=== PATIENT | female | born 1980 | race Caucasian/White ===

== ENCOUNTER 2017-09-23 13:57 | Emergency (ER) | payer MEDICAID ==
[2017-09-23] MEDS ORDERED: HYDROmorphone 0.5 MG/0.5 ML Syringe IVPUSH ONE (14:26)
[2017-09-23] MEDS ORDERED: Sodium Chloride 0.9% 10 ML Syringe FLUSH PRN (14:26)
[2017-09-23] MEDS ORDERED: Ondansetron 4 MG/2 ML SDV IVPUSH ONE (14:26)
--- NOTE | 2017-09-23 14:31 | EDM.PDOC ---
ED HPI GENERAL MEDICAL PROBLEM - General Chief Complaint: Headache Stated Complaint: HEADACHE/FACE PAIN & NUMBNESS Time Seen by Provider: 09/23/17 14:28 Source of Information: Reports: Patient History Limitations: Reports: No Limitations - History of Present Illness INITIAL COMMENTS - FREE TEXT/NARRATIVE: Pt arrived with pain in the entire head with the sensation of alot of pressure. She occassionally gets headaches but never this sever. She now has numbness in the rt facial area. She is mildly nauseated. She has never been told that she has migraine headaches. Onset: Other ( started last nite. ) Duration: Hour(s):, Getting Worse Location: Reports: Head, Face Associated Symptoms: Reports: Headaches, Other (pt has severe pressure in the head. ) Headache Pain Score (Numeric/FACES): 7 - Related Data Allergies Allergy/AdvReac Type Severity Reaction Status Date / Time cefaclor [From Ceclor] Allergy Cannot Verified 09/23/17 14:10 Remember Penicillins Allergy Cannot Verified 09/23/17 14:10 Remember Sulfa (Sulfonamide Allergy Cannot Verified 09/23/17 14:10 Antibiotics) Remember Home Meds: Home Meds NK [No Known Home Meds] 09/23/17 [History] Past Medical History WE[employer]ER History: Reports: Endocrine/Metabolic History: Reports: Other (See Below) Other Endocrine/Metabolic History: lyme disease in past - Past Surgical History GI Surgical History: Reports: Appendectomy Social & Family History - Tobacco Use Smoking Status *Q: Current Every Day Smoker Years of Tobacco use: 20 Packs/Tins Daily: 1 Used Tobacco, but Quit: No Second Hand Smoke Exposure: Yes - Alcohol Use Days Per Week of Alcohol Use: 0 - Recreational Drug Use Recreational Drug Use: No ED ROS GENERAL - Review of Systems Review Of Systems: See Below Constitutional: Reports: No Symptoms HEENT: Reports: No Symptoms Respiratory: Reports: No Symptoms Cardiovascular: Reports: No Symptoms Endocrine: Reports: No Symptoms GI/Abdominal: Reports: No Symptoms : Reports: No Symptoms Neurological: Reports: Other ( sevre headache. ) - Physical Exam Exam: See Below Text/Narrative:: pt arrived with a very severe headache over the entire head. She had numbness on the rt side of her face. She has never had a headache this severe. Exam Limited By: No Limitations General Appearance: Alert, Anxious, Severe Distress, Other (pupils are equal and reactive. ) Ears: Normal TMs Nose: Normal Inspection Throat/Mouth: Normal Inspection Head Exam: Atraumatic Neck: Normal Inspection Respiratory/Chest: No Respiratory Distress Cardiovascular: Regular Rate, Rhythm GI/Abdominal: Soft, Non-Tender, Other (pt has mild nausea. ) (Female) Exam: Deferred Rectal (Female) Exam: Deferred Neuro Exam (Abbreviated): Alert, Oriented, Normal Cognition Back Exam: Normal Inspection Extremities: Normal Inspection Psychiatric: Normal Affect Skin Exam: Dry Course - Vital Signs Last Recorded V/S: Last Vital Signs Temp 36.5 C 09/23/17 15:23 Pulse 65 09/23/17 17:21 Resp 16 09/23/17 17:21 BP 148/79 H 09/23/17 17:21 Pulse Ox 98 09/23/17 17:21 - Orders/Labs/Meds Orders: Active Orders 24 hr Category Date Time Status Head wo Cont [CT] Stat Exams 09/23/17 14:27 Taken Clindamycin Phosphate [Cleocin] 600 mg Med 09/23/17 17:15 Active Sodium Chloride 0.9% [Normal Saline] 50 ml IV ONETIME Sodium Chloride 0.9% [Normal Saline] 1,000 ml Med 09/23/17 16:00 Active IV ASDIRECTED Sodium Chloride 0.9% [Saline Flush] Med 09/23/17 14:26 Active 10 ml FLUSH ASDIRECTED PRN Saline Lock Insert [OM.PC] Routine Oth 09/23/17 14:26 Ordered Medication Orders Sodium Chloride (Normal Saline) 1,000 mls @ 999 mls/hr IV ASDIRECTED PATRICIA Last Admin: 09/23/17 17:09 Dose: 999 mls/hr Clindamycin Phosphate 600 mg/ (Sodium Chloride) 54 mls @ 100 mls/hr IV ONETIME ONE Stop: 09/23/17 17:47 Last Admin: 09/23/17 17:18 Dose: 100 mls/hr Sodium Chloride (Saline Flush) 10 ml FLUSH ASDIRECTED PRN PRN Reason: Keep Vein Open Last Admin: 09/23/17 15:05 Dose: 10 ml Labs: Laboratory Tests 09/23/17 09/23/17 09/23/17 Range/Units 14:27 14:27 14:56 WBC 14.2 H (4.5-11.0) K/uL RBC 5.08 (3.30-5.50) M/uL Hgb 14.0 (12.0-15.0) g/dL Hct 41.3 (36.0-48.0) % MCV 81 (80-98) fL MCH 28 (27-31) pg MCHC 34 (32-36) % Plt Count 289 (150-400) K/uL Neut % (Auto) 76 H (36-66) % Lymph % (Auto) 14 L (24-44) % Sunflower % (Auto) 7 H (2-6) % Eos % (Auto) 3 (2-4) % Baso % (Auto) 0 (0-1) % Sodium 142 (140-148) mmol/L Potassium 4.1 (3.6-5.2) mmol/L Chloride 109 H (100-108) mmol/L Carbon Dioxide 25 (21-32) mmol/L Anion Gap 12.1 (5.0-14.0) mmol/L BUN 12 (7-18) mg/dL Creatinine 0.9 (0.6-1.0) mg/dL Est Cr Clr Drug Dosing 72.47 mL/min Estimated GFR (MDRD) > 60 (>60) Glucose 95 (74-106) mg/dL Calcium 8.7 (8.5-10.1) mg/dL Total Bilirubin 0.4 (0.2-1.0) mg/dL AST 16 (15-37) U/L ALT 29 (12-78) U/L Alkaline Phosphatase 83 (46-116) U/L C-Reactive Protein 1.29 H (0.0-0.3) mg/dL Total Protein 6.4 (6.4-8.2) g/dL Albumin 3.4 (3.4-5.0) g/dL Globulin 3.0 (2.3-3.5) g/dL Albumin/Globulin Ratio 1.1 L (1.2-2.2) Urine Color Urine Appearance Urine pH (4.5-8.0) Ur Specific [place] (1.008-1.030) Urine Protein (NEGATIVE) mg/dL Urine Glucose (UA) (NEGATIVE) mg/dL Urine Ketones (NEGATIVE) mg/dL Urine Occult Blood (NEGATIVE) Urine Nitrite (NEGATIVE) Urine Bilirubin (NEGATIVE) Urine Urobilinogen (NORMAL) mg/dL Ur Leukocyte Esterase (NEGATIVE) Urine RBC (0-5) Urine WBC (0-5) Ur Epithelial Cells Amorphous Sediment Urine Bacteria Urine Mucus 09/23/17 Range/Units 15:19 WBC (4.5-11.0) K/uL RBC (3.30-5.50) M/uL Hgb (12.0-15.0) g/dL Hct (36.0-48.0) % MCV (80-98) fL MCH (27-31) pg MCHC (32-36) % Plt Count (150-400) K/uL Neut % (Auto) (36-66) % Lymph % (Auto) (24-44) % Sunflower % (Auto) (2-6) % Eos % (Auto) (2-4) % Baso % (Auto) (0-1) % Sodium (140-148) mmol/L Potassium (3.6-5.2) mmol/L Chloride (100-108) mmol/L Carbon Dioxide (21-32) mmol/L Anion Gap (5.0-14.0) mmol/L BUN (7-18) mg/dL Creatinine (0.6-1.0) mg/dL Est Cr Clr Drug Dosing mL/min Estimated GFR (MDRD) (>60) Glucose (74-106) mg/dL Calcium (8.5-10.1) mg/dL Total Bilirubin (0.2-1.0) mg/dL AST (15-37) U/L ALT (12-78) U/L Alkaline Phosphatase (46-116) U/L C-Reactive Protein (0.0-0.3) mg/dL Total Protein (6.4-8.2) g/dL Albumin (3.4-5.0) g/dL Globulin (2.3-3.5) g/dL Albumin/Globulin Ratio (1.2-2.2) Urine Color Yellow Urine Appearance Slightly cloudy Urine pH 5.0 (4.5-8.0) Ur Specific [place] 1.010 (1.008-1.030) Urine Protein Negative (NEGATIVE) mg/dL Urine Glucose (UA) Normal (NEGATIVE) mg/dL Urine Ketones Negative (NEGATIVE) mg/dL Urine Occult Blood Trace (NEGATIVE) Urine Nitrite Negative (NEGATIVE) Urine Bilirubin Negative (NEGATIVE) Urine Urobilinogen Normal (NORMAL) mg/dL Ur Leukocyte Esterase Negative (NEGATIVE) Urine RBC 0-5 (0-5) Urine WBC 0-5 (0-5) Ur Epithelial Cells Moderate Amorphous Sediment Not seen Urine Bacteria Rare Urine Mucus Rare Meds: Medications Generic Name Dose Route Start Last Admin Trade Name Freq PRN Reason Stop Dose Admin Sodium Chloride 1,000 mls @ 999 mls/hr 09/23/17 16:00 09/23/17 17:09 Normal Saline IV 999 mls/hr ASDIRECTED PATRICIA Administration Clindamycin Phosphate 600 mg/ 54 mls @ 100 mls/hr 09/23/17 17:15 09/23/17 17: 18 Sodium Chloride IV 09/23/17 17:47 100 mls/hr ONETIME ONE Administration Sodium Chloride 10 ml 09/23/17 14:26 09/23/17 15:05 Saline Flush FLUSH 10 ml ASDIRECTED PRN Administration Keep Vein Open Discontinued Medications Generic Name Dose Route Start Last Admin Trade Name Reginaldq PRN Reason Stop Dose Admin Diphenhydramine HCl 25 mg 09/23/17 15:56 09/23/17 17:11 Benadryl IVPUSH 09/23/17 15:57 25 mg ONETIME ONE Administration Hydromorphone HCl 0.5 mg 09/23/17 14:26 09/23/17 15:05 Dilaudid IVPUSH 09/23/17 14:27 0.5 mg ONETIME ONE Administration Ketorolac Tromethamine 30 mg 09/23/17 15:57 09/23/17 17:15 Toradol IVPUSH 09/23/17 15:58 30 mg ONETIME ONE Administration Ondansetron HCl 4 mg 09/23/17 14:26 09/23/17 15:07 Zofran IVPUSH 09/23/17 14:27 4 mg ONETIME ONE Administration Oxycodone/Acetaminophen 1 tab 09/23/17 17:39 Percocet 325-5 Mg PO 09/23/17 17:40 ONETIME ONE - Re-Assessments/Exams Free Text/Narrative Re-Assessment/Exam: 09/23/17 16:00 cat scan of the head was neg.She had normal looking sinuses. Her wbc was borderline. Her chems looked good. As the headache improved she localized thae she is having pain in the rt lower most post molar. 09/23/17 17:00 Departure - Departure Time of Disposition: 17:39 Disposition: Home, Self-Care 01 Condition: Fair Clinical Impression: Infected tooth, Migraine - Discharge Information Instructions: Migraine Headache, [id number], Dental Abscess, [id number] Referrals: PCP,None [Primary Care Provider] - Forms: ED Department Discharge Care Plan Goals: push fluids, dental appt early next week, clindomycin 300mg tid for 10 days, norco 5/325 q6h prn for pain Do yogurt and probiotic while on the antibiotic. - My Orders Last 24 Hours: My Active Orders 09/23/17 14:26 Sodium Chloride 0.9% [Saline Flush] 10 ml FLUSH ASDIRECTED PRN Saline Lock Insert [OM.PC] Routine 09/23/17 14:27 Head wo Cont [CT] Stat 09/23/17 16:00 Sodium Chloride 0.9% [Normal Saline] 1,000 ml IV ASDIRECTED 09/23/17 17:15 Clindamycin Phosphate [Cleocin] 600 mg Sodium Chloride 0.9% [Normal Saline] 50 ml IV ONETIME - Assessment/Plan Last 24 Hours: My Active Orders 09/23/17 14:26 Sodium Chloride 0.9% [Saline Flush] 10 ml FLUSH ASDIRECTED PRN Saline Lock Insert [OM.PC] Routine 09/23/17 14:27 Head wo Cont [CT] Stat 09/23/17 16:00 Sodium Chloride 0.9% [Normal Saline] 1,000 ml IV ASDIRECTED 09/23/17 17:15 Clindamycin Phosphate [Cleocin] 600 mg Sodium Chloride 0.9% [Normal Saline] 50 ml IV ONETIME
[2017-09-23] MEDS ORDERED: diphenhydrAMINE 50 MG/ML SDV IVPUSH ONE (15:56)
[2017-09-23] MEDS ORDERED: Ketorolac 30 MG/ML SDV IVPUSH ONE (15:57)
[2017-09-23] MEDS ORDERED: Sodium Chloride 0.9% 1,000 ML IV SCH (16:00)
[2017-09-23] MEDS ORDERED: cefTRIAXone 500 MG Vial IVPUSH ONE (16:59)
[2017-09-23 17:23] VITALS: BP 148/79
[2017-09-23] MEDS ORDERED: Acetaminophen/oxyCODONE 325-5 MG Tab PO ONE (17:39)
== END 2017-09-23 18:22 | disposition home or self-care (01) ==
LOC: JP.ED 13:57
DX: G43.909 Migraine, unspecified, not intractable, without status migrainosus (principal); K04.7 Periapical abscess without sinus; F17.210 Nicotine dependence, cigarettes, uncomplicated; Z88.0 Allergy status to penicillin; Z88.2 Allergy status to sulfonamides; Z88.1 Allergy status to other antibiotic agents
CPT/HCPCS: 36415; 70450; 80053; 81001; 85025; 86140; 96361; 96365; 96375; 99284; A9270; J1170; J1200; J1885; J2405; J7040; J7050; 99283; J7030; S0077

== ENCOUNTER 2017-09-27 19:44 | Emergency (ER) | payer SELFPAY ==
[2017-09-27] MEDS ORDERED: HYDROmorphone 1 MG/ML Syringe IVPUSH ONE (21:10)
[2017-09-27] MEDS ORDERED: Sodium Chloride 0.9% 10 ML Syringe FLUSH PRN (21:10)
[2017-09-27] MEDS ORDERED: LORazepam 2 MG/ML SDV IVPUSH ONE (21:10)
[2017-09-27] MEDS ORDERED: cefTRIAXone 500 MG Vial IVPUSH ONE (21:11)
--- NOTE | 2017-09-27 21:14 | EDM.PDOC ---
ED HPI GENERAL MEDICAL PROBLEM - General Chief Complaint: ENT Problem Stated Complaint: TOOTH PAIN Time Seen by Provider: 09/27/17 20:38 Source of Information: Reports: Patient, Old Records, RN Notes Reviewed History Limitations: Reports: No Limitations - History of Present Illness INITIAL COMMENTS - FREE TEXT/NARRATIVE: 2047 Brought by her son Chief complaint Headache, vomiting, facial pain History of present illness 37-year-old female, irregularly gets headaches, never diagnosed with him previously, seen in emergency for days ago for the worst headache she's ever had. Labs are done as well as CT head which was negative. After she had been initially evaluated then she started developing or noticing right lower dental pain. Consequently she was prescribed clindamycin for this. Since then the pain has increased swelling of her face has started she cannot open her mouth she cannot swallow because her throat is painful and in addition she's had nausea and vomiting, "all day Tuesday" which was 2 days ago. Yesterday and today she's had several episodes of diarrhea. No on else ill at home. No fever No cough or difficulty breathing. 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 Right Lower Oral/Mouth Pain Score (Numeric/FACES): 8 - Related Data Allergies Allergy/AdvReac Type Severity Reaction Status Date / Time cefaclor [From Ceclor] Allergy Cannot Verified 09/27/17 19:58 Remember Penicillins Allergy Cannot Verified 09/27/17 19:58 Remember Sulfa (Sulfonamide Allergy Cannot Verified 09/27/17 19:58 Antibiotics) Remember Home Meds: Home Meds Acetaminophen/oxyCODONE [Percocet 325-5 MG] 1 - 2 each PO Q4H PRN #15 tab [Rx] Cefuroxime Axetil [Cefuroxime] 250 mg PO BID #20 tablet 09/27/17 [Rx] Clindamycin HCl [Cleocin] 300 mg PO TID 09/27/17 [History] Past Medical History [employer] SUPER[employer] History: Reports: Endocrine/Metabolic History: Reports: Other (See Below) Other Endocrine/Metabolic History: lyme disease in past - Past Surgical History GI Surgical History: Reports: Appendectomy Social & Family History - Tobacco Use Smoking Status *Q: Unknown Ever Smoked Years of Tobacco use: 20 Packs/Tins Daily: 1 Used Tobacco, but Quit: No Second Hand Smoke Exposure: Yes - Alcohol Use Days Per Week of Alcohol Use: 0 - Recreational Drug Use Recreational Drug Use: No ED ROS ENT - Review of Systems Review Of Systems: See Below Constitutional: Reports: Malaise, Fatigue, Decreased Appetite. Denies: Fever HEENT: Reports: Dental Pain, Throat Pain, Other (Facial swelling, unable to open mouth). Denies: Ear Pain, Rhinitis Respiratory: Denies: Cough Cardiovascular: Denies: Chest Pain GI/Abdominal: Reports: Diarrhea, Decreased Appetite, Nausea, Vomiting. Denies: Abdominal Pain : Reports: No Symptoms Musculoskeletal: Reports: Other (Neck pain) Skin: Reports: No Symptoms Neurological: Reports: Headache, Trouble Speaking (Because of trismus), Other ( Sleep disturbance because of pain). Denies: Numbness, Paresthesia, Syncope, Gait Disturbance Hematologic/Lymphatic: Reports: No Symptoms Immunologic: Reports: No Symptoms ED EXAM, ENT - Physical Exam Exam: See Below Exam Limited By: No Limitations General Appearance: Alert, Moderate Distress, Other (Appears quite uncomfortable ,Temperature normal blood pressure elevated pulse normal, no difficulty breathing but difficulty talking because it is so painful to open mouth) Eye Exam: Bilateral Eye: EOMI, Normal Inspection Ears: Normal External Exam, Normal Canal, Hearing Grossly Normal, Normal TMs Nose: Normal Inspection, Normal Mucousa Mouth/Throat: Dental Pain (Right lower), Muffled Voice (Mild), Pharyngeal Erythema, Throat Swelling, Trismus, Other (Trismus, unable to fully evaluate throat, facial swelling on the right cheek). No: Normal Oropharynx Head: Atraumatic Neck: Supple, Non-Tender. No: Lymphadenopathy (R), Lymphadenopathy (L) Respiratory/Chest: No Respiratory Distress, Lungs Clear, No Accessory Muscle Use , Chest Non-Tender Cardiovascular: Normal Peripheral Pulses, Regular Rate, Rhythm Extremities: Normal Inspection, Non-Tender Neurological: Alert, No Motor/Sensory Deficits Psychiatric: Anxious, Tearful Skin: Warm, Dry, No Rash Course - Vital Signs Last Recorded V/S: Last Vital Signs Temp 37.2 C 09/28/17 00:05 Pulse 80 09/27/17 21:35 Resp 15 09/28/17 00:05 BP 142/97 H 09/28/17 00:05 Pulse Ox 99 09/28/17 00:05 - Orders/Labs/Meds Orders: Active Orders 24 hr Category Date Time Status Peripheral IV Care [RC] . DIRECTED Care 09/27/17 21:10 Active Neck Soft Tissue [CR] Stat Exams 09/27/17 21:10 Taken Soft Tissue Neck w Cont [CT] Stat Exams 09/27/17 22:03 Taken Peripheral IV Insertion Adult [OM.PC] Routine Oth 09/27/17 21:09 Ordered Labs: Laboratory Tests 09/27/17 Range/Units 21:20 WBC 9.4 (4.5-11.0) K/uL RBC 4.79 (3.30-5.50) M/uL Hgb 12.8 (12.0-15.0) g/dL Hct 38.5 (36.0-48.0) % MCV 80 (80-98) fL MCH 27 (27-31) pg MCHC 33 (32-36) % Plt Count 366 (150-400) K/uL Meds: Medications Discontinued Medications Generic Name Dose Route Start Last Admin Trade Name Freq PRN Reason Stop Dose Admin Ceftriaxone Sodium 1,000 mg 09/27/17 21:11 09/27/17 21:43 Rocephin IVPUSH 09/27/17 21:12 1,000 mg ONETIME ONE Administration Hydromorphone HCl 1 mg 09/27/17 21:10 09/27/17 21:42 Dilaudid IVPUSH 09/27/17 21:11 1 mg ONETIME ONE Administration Hydromorphone HCl 0.5 mg 09/27/17 22:44 09/27/17 22:50 Dilaudid IVPUSH 0.5 mg Q1H PRN Administration moderate to severe pain Sodium Chloride 1,000 mls @ 400 mls/hr 09/27/17 21:15 09/27/17 21:42 Normal Saline IV 400 mls/hr ASDIRECTED PATRICIA Administration Sodium Chloride Confirm 09/27/17 21:28 Normal Saline Administered 09/27/17 21:29 Dose 50 mls @ as directed .ROUTE .STK-MED ONE Sodium Chloride 100 mls @ 3 mls/sec 09/27/17 22:15 Normal Saline IV ASDIRECTED PATRICIA Iopamidol 100 ml 09/27/17 22:15 [id number] (76%) IV . DIRECTED PATRICIA Lorazepam 1 mg 09/27/17 21:10 09/27/17 21:42 Ativan IVPUSH 09/27/17 21:11 1 mg ONETIME ONE Administration Sodium Chloride 10 ml 09/27/17 21:10 Saline Flush FLUSH ASDIRECTED PRN Keep Vein Open - Re-Assessments/Exams Free Text/Narrative Re-Assessment/Exam: 09/27/17 21:08 37-year-old female with right-sided dental pain, facial swelling, trismus and headache along with nausea and vomiting but no fever. Symptoms are suggestive of dental infection and headache, possible migraine, however the possibility also exists of peritonsillar or retropharyngeal abscess in view of her significant trismus and pain. Intravenous saline, hydromorphone 1.5 mg total, lorazepam 1 mg and ceftriaxone 1000 mg with some improvement 09/27/17 22:07 She reports initially pain not significantly improved but nausea is better, she was a bit sedated according to the nurse after the medication was initially given. Unfortunately plain x-rays of the neck were done which were listed as CR instead of ordering the CT of the soft tissue of the neck which will now be ordered. 09/28/17 00:42 CT scan soft tissues neck negative After the second dose hydromorphone for a total of 1.5 mg, improvement was noted. She was able to be discharged, see discharge instructions below Departure - Departure Time of Disposition: 23:41 Disposition: Home, Self-Care 01 Condition: Good Clinical Impression: Dental abscess, Trismus Headache Qualifiers: Headache type: unspecified Headache chronicity pattern: acute headache Intractability: not intractable Qualified Code(s): R51 - Headache - Discharge Information Prescriptions: Acetaminophen/oxyCODONE [Percocet 325-5 MG] 1 - 2 each PO Q4H PRN #15 tab PRN Reason: moderate to severe pain Cefuroxime Axetil [Cefuroxime] 250 mg PO BID #20 tablet Instructions: Dental Abscess Referrals: PCP,None [Primary Care Provider] - Forms: ED Department Discharge, ED Return to Work/School Form Additional Instructions: finished taking the clindamycin unless the diarrhea gets very bad. Get rechecked if you have any diarrhea, significant abdominal pain in addition to your facial pain or started developing high fever Make a dental appointment as soon as possible - My Orders Last 24 Hours: My Active Orders 09/27/17 21:09 Peripheral IV Insertion Adult [OM.PC] Routine 09/27/17 21:10 Peripheral IV Care [RC] . DIRECTED Neck Soft Tissue [CR] Stat 09/27/17 22:03 Soft Tissue Neck w Cont [CT] Stat - Assessment/Plan Last 24 Hours: My Active Orders 09/27/17 21:09 Peripheral IV Insertion Adult [OM.PC] Routine 09/27/17 21:10 Peripheral IV Care [RC] . DIRECTED Neck Soft Tissue [CR] Stat 09/27/17 22:03 Soft Tissue Neck w Cont [CT] Stat
[2017-09-27] MEDS ORDERED: Sodium Chloride 0.9% 1,000 ML IV SCH (21:15)
[2017-09-27] MEDS ORDERED: Sodium Chloride 0.9% 50 ML ONE (21:28)
[2017-09-27] MEDS ORDERED: Iopamidol 755 Mg/ML 100 ML Bottle IV SCH (22:15)
[2017-09-27] MEDS ORDERED: Sodium Chloride 0.9% 100 ML IV SCH (22:15)
[2017-09-27] MEDS ORDERED: HYDROmorphone 0.5 MG/0.5 ML Syringe IVPUSH PRN (22:44)
[2017-09-28 00:07] VITALS: BP 142/97
--- NOTE | 2017-09-28 08:32 | CR ---
Neck Soft Tissue HISTORY: Increasing pain in the head and neck, trismus, den FINDINGS: Upper airway appears widely patent. Epiglottis is not enlarged. Prevertebral soft tissues a ppear normal. No other soft tissue abnormality is seen. I see no abnormal calcifications There is str aightening of the cervical necrotic curvature with mild degenerative changes lower cervical spine. IMPRESSION: No soft tissue abnormality of the neck is identified. Upper airway is widely patent. Ther e are mild degenerative changes lower cervical spine.
== END 2017-09-28 00:09 | disposition home or self-care (01) ==
LOC: JP.ED 19:44
DX: K04.7 Periapical abscess without sinus (principal); R25.2 Cramp and spasm; R51 Headache; Z77.22 Contact with and (suspected) exposure to environmental tobacco smoke (acute) (chronic); Z88.2 Allergy status to sulfonamides; Z88.1 Allergy status to other antibiotic agents; Z88.0 Allergy status to penicillin
CPT/HCPCS: 36415; 70360; 70491; 85027; 96361; 96374; 96375; 96376; 99284; J0696; J1170; J2060; J7040; J7030